=== PATIENT | male | born 1970 | race Two or more races ===

== ENCOUNTER 2020-05-07 22:32 | Emergency (ER) | payer OTHER ==
[~2020-05-07] VITALS: Ht 170.2 cm; Wt 86.2 kg
[2020-05-07] MEDS ORDERED: NEOMY/BACITRA/POLYMYXIN B OINT UD PACKET TP ONE ×2 (23:00→23:22)
[2020-05-07] MEDS ORDERED: KETOROLAC TROMETHAMINE 30 MG INJ IM ONE (23:00)
[2020-05-07] MEDS ORDERED: SODIUM BICARBONATE 4.2 % (NEUT) 5 ML VIAL TP ONE (23:00)
[2020-05-07] MEDS ORDERED: LIDOCAINE HCL 2% 20 ML VIAL TP ONE (23:00)
[2020-05-07] MEDS ORDERED: LET TOPICAL SOLUTION 8 ML UDC TP ONE (23:00)
[2020-05-07] MEDS ORDERED: TDAP DIPH,PERTUSS,TET VAC/PF 0.5 ML DISP.SYRIN IM ONE ×2 (23:00→23:04)
[2020-05-07] MEDS ORDERED: KETOROLAC TROMETHAMINE 30 MG INJ ONE (23:03)
[2020-05-07] MEDS ORDERED: LIDOCAINE HCL 2% 20 ML VIAL ONE (23:03)
[2020-05-07] MEDS ORDERED: LET TOPICAL SOLUTION 8 ML UDC ONE (23:03)
[2020-05-07] MEDS ORDERED: SODIUM BICARBONATE 4.2 % (NEUT) 5 ML VIAL ONE (23:22)
--- NOTE | 2020-05-08 00:17 | NUR ---
Patient discharged to home in stable condition. Written and verbal after care instructions given. Patient verbalizes understanding of instructions. Stressed follow up or return to ER for worsening s/s. Patient ambulated with stable gait. A/Ox4. All belongings returned to patient.
[2020-05-08 00:19] VITALS: BP 139/66
== END 2020-05-08 00:20 | disposition home or self-care (01) ==
LOC: ER 22:34
DX: S51.812A Laceration without foreign body of left forearm, initial encounter (principal); W26.0XXA Contact with knife, initial encounter; Y93.89 Activity, other specified; Y92.89 Other specified places as the place of occurrence of the external cause; E78.5 Hyperlipidemia, unspecified; R03.0 Elevated blood-pressure reading, without diagnosis of hypertension
CPT/HCPCS: 12002; 90471; 90715; 96372; 99283; J1885; J3490 ×2; A4663

== ENCOUNTER 2021-06-16 13:29 | Emergency (ER) | payer OTHER ==
[~2021-06-16] VITALS: Ht 170.2 cm; Wt 83.9 kg
--- NOTE | 2021-06-16 13:30 | NUR ---
Dr Vincent at the bedside for MSE.
[2021-06-16 13:58] LABS: HEMATOCRIT 41.6 % (36.7-47.1); MEAN CORPUSCULAR HEMOGLOBIN 28.9 uug (23.8-33.4); MEAN CORPUSCULAR VOLUME 81.5 fL (73.0-96.2); PLATELET COUNT (AUTO) 362 K/uL (152-348)
[2021-06-16] MEDS ORDERED: ACETAMINOPHEN ES 500 MG TABLET PO ONE (14:00)
[2021-06-16] MEDS ORDERED: ACETAMINOPHEN ES 500 MG TABLET ONE (14:05)
[2021-06-16 14:09] LABS: ETHANOL < 3 MG/DL (0-0)
[2021-06-16 14:29] LABS: CARBON DIOXIDE 20 mmol/L (21-32); CHLORIDE 98 mmol/L (98-107); CREATININE 0.8 mg/dL (0.6-1.3); GLUCOSE 179 mg/dL (74-106); POTASSIUM 3.6 mmol/L (3.5-5.1); UREA NITROGEN, BLOOD 9 mg/dL (7-18)
--- NOTE | 2021-06-16 14:54 | NUR ---
Patient is resting comfortably in bed using his phone, denies chest pain and headache.
[2021-06-16 15:17] LABS: ALANINE AMINOTRANSFERASE 15 U/L (16-63); ASPARTATE AMINOTRANSFERASE 10 U/L (15-37); TOTAL PROTEIN, SERUM 35.3 g/dL (6.4-8.2)
[2021-06-16 15:21] LABS: BILIRUBIN,DIRECT < 0.1 mg/dL (0.0-0.2); BILIRUBIN,TOTAL 0.4 mg/dL (0.2-1.0)
[2021-06-16 15:22] LABS: ALKALINE PHOSPHATASE 78 U/L (50-136)
--- NOTE | 2021-06-16 18:07 | NUR ---
Pt stated, he wants to get script for cholestrol lowering medication and sign out AMA. Dr Vincent notified.
--- NOTE | 2021-06-16 18:35 | NUR ---
After speaking w/ Dr sage in length regarding staying/leaving the hospital, pt agreed to stay over night. Insert another HL to RT AC angio # [id number].
--- NOTE | 2021-06-16 19:21 | NUR ---
pt has removed his iv access, pt wants to leave the hospital ama. Dr. Anglin at bedside to speak with the pt.
[2021-06-16] MEDS ORDERED: LORA-259 PO (19:45)
[2021-06-16 19:54] VITALS: BP 122/70
--- NOTE | 2021-06-16 19:54 | NUR ---
Patient discharged to home in stable condition. Written and verbal after care instructions given. Patient verbalizes understanding of instructions. Stressed follow up or return to ER for worsening s/s. pt ambulatory with steady gait, denies pain or sob.
[2021-06-16] MEDS ORDERED: ATORVASTATIN 20 MG TABLET PO SCH (21:00)
== END 2021-06-16 19:55 | disposition home or self-care (01) ==
LOC: ER 13:29
DX: R07.9 Chest pain, unspecified (principal); E78.5 Hyperlipidemia, unspecified; E78.1 Pure hyperglyceridemia; D75.839 Thrombocytosis, unspecified; R00.0 Tachycardia, unspecified; I45.10 Unspecified right bundle-branch block
CPT/HCPCS: 36415; 71045; 84443; 84484; 85025; 93005; A4663; A9150; G0480